=== PATIENT | female | born 1980 | race Caucasian/White ===

== ENCOUNTER 2021-12-24 13:37 | Emergency (ER) | payer SELFPAY ==
[2021-12-24 13:40] VITALS: BP 124/81
--- NOTE | 2021-12-24 13:57 | Emergency Department Report ---
Blank Doc - Documentation Documentation: This is a courtesy note. EMS brought the patient to the wrong facility. The patient was being transferred to a psychiatric facility and they follow GPS to the wrong address. We did not provide any care in the emergency department for this patient.
== END 2021-12-24 17:10 | disposition home or self-care (01) ==
LOC: ED 13:37
DX: F29 Unspecified psychosis not due to a substance or known physiological condition (principal); Z53.21 Procedure and treatment not carried out due to patient leaving prior to being seen by health care provider